=== PATIENT | female | born 1940 | race Caucasian/White ===

== ENCOUNTER 2017-09-10 15:08 | Emergency (ER) | payer MEDICARE, OTHER ==
[~2017-09-10] VITALS: Ht 170.2 cm; Wt 79.4 kg
[~2017-09-10 15:08] MED LIST: CLARITAN PO; MELO1TAB73; NOR10T GT; ONDANSETRON ODT 8 MG TABLET; PROCHLORPERAZINE 10 MG TAB
[2017-09-10 15:19] VITALS: BP 174/72
== END 2017-09-10 17:54 | disposition left against medical advice (07) ==
LOC: ER 15:09
DX: R55 Syncope and collapse (principal); Z53.21 Procedure and treatment not carried out due to patient leaving prior to being seen by health care provider
CPT/HCPCS: 70450; 93005

== ENCOUNTER → 2018-10-18 | Outpatient (CLI) | payer MEDICARE, OTHER ==
[2018-10-18 09:31] LABS: Basophils # (auto) 0.1 uL; Basophils % (auto) 1.2 % (0.0-2.0); Eosinophils # (auto) 0.1 uL; Eosinophils % (auto) 0.6 % (0.0-7.0); Hematocrit 37.3 % (36.0-46.0); Hemoglobin 12.5 g/dL (12.2-16.2); Lymphocytes # (auto) 1.6 uL; Lymphocytes % (auto) 19.2 % (10.0-50.0); Mean Corpuscular Hemoglobin 32.5 pg (28.0-32.0); Mean Corpuscular Hgb Conc. 33.6 g/dL (32.0-36.0); Mean Corpuscular Volume 96.6 fL (80.0-100.0); Monocytes # (auto) 0.5 uL; Monocytes % (auto) 6.6 % (0.0-12.0); Neutrophils # (auto) 5.9 uL; Neutrophils % (auto) 72.4 % (37.0-80.0); Nucleated Red Blood Cells % 0.1 %; Platelet Count (auto) 291 10^3/uL (140-450); Red Blood Cells 3.86 10^6/uL (4.0-5.20); White Blood Cell 8.2 10^3/uL (4.4-10.8)
[2018-10-18 10:32] LABS: Albumin 3.6 g/dL (3.4-5.0); Calcium 8.7 mg/dL (8.5-10.1); Potassium 4.4 mmol/L (3.5-5.1)
[2018-10-18 10:35] LABS: BUN/Creatinine Ratio 17.7; Bilirubin, Total 0.3 mg/dL (0.2-1.0); Total Protein 7.3 g/dL (6.4-8.2)
== END | disposition home or self-care (01) ==
LOC: LAB 09:10
PROVIDERS: ATTEND Internal Medicine
DX: C34.91 Malignant neoplasm of unspecified part of right bronchus or lung (principal)
CPT/HCPCS: 36415; 80053; 83615; 85025

== ENCOUNTER → 2019-10-13 | Outpatient (CLI) | payer MEDICARE, OTHER ==
[2019-10-13 10:58] LABS: Basophils # (auto) 0.1 uL; Basophils % (auto) 1.5 % (0.0-2.0); Eosinophils # (auto) 0.1 uL; Hematocrit 36.6 % (36.0-46.0); Hemoglobin 12.4 g/dL (12.2-16.2); Lymphocytes # (auto) 1.2 uL; Lymphocytes % (auto) 23.1 % (10.0-50.0); Mean Corpuscular Hemoglobin 32.7 pg (28.0-32.0); Mean Corpuscular Hgb Conc. 33.9 g/dL (32.0-36.0); Mean Corpuscular Volume 96.5 fL (80.0-100.0); Monocytes # (auto) 0.2 uL; Monocytes % (auto) 4.4 % (0.0-12.0); Neutrophils # (auto) 3.6 uL; Nucleated Red Blood Cells % 0.1 %; Platelet Count (auto) 250 10^3/uL (140-450); Red Blood Cells 3.79 10^6/uL (4.0-5.20); Red Cell Distribution Width 18.9 % (11.8-14.3); White Blood Cell 5.2 10^3/uL (4.4-10.8)
[2019-10-13 11:01] LABS: Potassium 4.2 mmol/L (3.5-5.1)
[2019-10-13 11:08] LABS: Folate (Folic Acid) > 24.00 ng/mL (5.38-24)
[2019-10-13 11:09] LABS: % Iron Saturation 37.5 % (15-50)
[2019-10-13 11:14] LABS: Albumin 3.9 g/dL (3.4-5.0); BUN/Creatinine Ratio 10.5; Bilirubin, Total 0.5 mg/dL (0.2-1.0); Calcium 9.3 mg/dL (8.5-10.1); Total Protein 7.7 g/dL (6.4-8.2)
== END | disposition home or self-care (01) ==
LOC: LAB 09:48
PROVIDERS: ATTEND Internal Medicine
DX: C34.91 Malignant neoplasm of unspecified part of right bronchus or lung (principal)
CPT/HCPCS: 36415; 80053; 82746; 83540; 83550; 83615; 85025

== ENCOUNTER 2020-04-14 20:14 | Inpatient (IN) | payer MEDICARE, OTHER ==
[~2020-04-14] VITALS: Ht 172.7 cm; Wt 68.8 kg
[2020-04-14 22:31] LABS: Basophils # (auto) 0 10 ^3/uL (0-0.2); Eosinophils # (auto) 0 10 ^3/uL (0-0.8); Lymphocytes # (auto) 0.7 10 ^3/uL (0.4-5.4); Monocytes # (auto) 0.5 10 ^3/uL (0-1.3); Neutrophils # (auto) 0.2 10 ^3/uL (1.6-8.6)
[2020-04-14 22:42] LABS: Alanine Aminotransferase 17 U/L (13-56); Anion Gap 11 (5-15); Aspartate Aminotransferase 41 U/L (15-37); BUN/Creatinine Ratio 15.4; Blood Urea Nitrogen 14 mg/dL (7-18); Calcium 8.3 mg/dL (8.5-10.1); Carbon Dioxide 20 mmol/L (21-32); Chloride 101 mmol/L (98-107); GFR African American 77 mL/min; GFR Non-African American 63 mL/min; Glucose 124 mg/dL (74-106); Potassium 3.1 mmol/L (3.5-5.1); Sodium 132 mmol/L (136-145)
[2020-04-14 22:45] LABS: Lymphocytes % (auto) 50.3 % (10.0-50.0); Monocytes % (auto) 34.8 % (0.0-12.0); Neutrophils % (auto) 13.9 % (37.0-80.0)
[2020-04-14 22:46] LABS: Basophils % (auto) 0.6 % (0.0-2.0); Eosinophils % (auto) 0.4 % (0.0-7.0); INR 1.13 (0.9-1.15); Nucleated Red Blood Cells % 0.9 %; Partial Thromboplastin Time 29.7 sec (23.64-32.05)
[2020-04-14 22:47] LABS: Alkaline Phosphatase 72 U/L (45-117); Bilirubin, Total 0.6 mg/dL (0.2-1.0); Mean Corpuscular Hemoglobin 35.6 pg (28.0-32.0); Mean Corpuscular Hgb Conc. 33.7 g/dL (32.0-36.0); Mean Corpuscular Volume 105.5 fL (80.0-100.0); Total Protein 7.5 g/dL (6.4-8.2)
[2020-04-14 22:48] LABS: Platelet Count (auto) 76 10^3/uL (140-450)
[2020-04-14 22:52] LABS: Hemoglobin 6.7 g/dL (12.2-16.2); White Blood Cell 1.5 10^3/uL (4.4-10.8)
[2020-04-15] VITALS (16 sets, daily range): BP systolic 108–144; BP diastolic 51–82
[2020-04-15] MEDS ORDERED: SODIUM CHLORIDE 0.9% 1,000 ML IV SCH (01:20)
[2020-04-15] MEDS ORDERED: ALBUTEROL SULF 2.5 MG/0.5ML(0.5%) NEB SOLN NEB PRN (01:30)
[2020-04-15] MEDS ORDERED: DOCUSATE SOD 100 MG CAP PO PRN (01:30)
[2020-04-15] MEDS ORDERED: ONDANSETRON HCL 4 MG/2 ML VIAL IV PRN (01:30)
[2020-04-15] MEDS ORDERED: NITROGLYCERIN 0.4 MG SL TAB SL PRN (01:30)
[2020-04-15] MEDS ORDERED: ACETAMINOPHEN 500 MG TAB PO PRN (01:30)
[2020-04-15] MEDS ORDERED: IPRATROPIUM BROM 0.5 MG/2.5ML INH SOL NEB PRN (01:30)
[2020-04-15] MEDS ORDERED: ALBUTEROL SULF HFA 90MCG INH 200DOSE IN SCH (06:00)
[2020-04-15] MEDS ORDERED: DIPH2.5T73 PO (06:21)
[2020-04-15] MEDS ORDERED: ROFL1TAB2 PO (06:37)
[2020-04-15] MEDS ORDERED: ENOXAPARIN SOD 40 MG/0.4 ML SYRINGE SC SCH (10:00)
[2020-04-15] MEDS ORDERED: ASCORBIC ACID 1,000 MG TAB PO SCH (10:00)
[2020-04-15] MEDS ORDERED: CHOLECALCIFEROL (VITD3) 1,000IU=25mCg TAB PO SCH (10:00)
[2020-04-15] MEDS ORDERED: ZINC SULFATE 220mg CAP or TAB PO SCH (10:00)
[2020-04-15] MEDS: DOXYCYCLINE 100 MG TAB/CAP PO SCH ×2 (11:04→21:43)
[2020-04-15] MEDS ORDERED: ACETAMINOPHEN 325 MG TAB PO PRN (14:15)
[2020-04-15] MEDS ORDERED: IOHEXOL 350 MG/ML 100ML IJ ONE (14:22)
[2020-04-15 14:33] LABS: Basophils # (auto) 0 10 ^3/uL (0-0.2); Eosinophils # (auto) 0 10 ^3/uL (0-0.8); Lymphocytes # (auto) 0.4 10 ^3/uL (0.4-5.4); Monocytes # (auto) 0.3 10 ^3/uL (0-1.3); Platelet Count (auto) 51 10^3/uL (140-450)
[2020-04-15 14:36] LABS: Basophils % (auto) 0.2 % (0.0-2.0); Eosinophils % (auto) 0.8 % (0.0-7.0); Hemoglobin 8.8 g/dL (12.2-16.2); Lymphocytes % (auto) 50.7 % (10.0-50.0); Mean Corpuscular Hgb Conc. 35.1 g/dL (32.0-36.0); Neutrophils # (auto) 0.1 10 ^3/uL (1.6-8.6); Neutrophils % (auto) 17.3 % (37.0-80.0); Nucleated Red Blood Cells % 0.9 %; Red Blood Cells 2.58 10^6/uL (4.0-5.20)
[2020-04-15 14:41] LABS: Red Cell Distribution Width 25.9 % (11.8-14.3)
[2020-04-15 14:44] LABS: White Blood Cell 0.8 10^3/uL (4.4-10.8)
[2020-04-15 14:49] LABS: Calcium 8.3 mg/dL (8.5-10.1)
[2020-04-15 14:52] LABS: BUN/Creatinine Ratio 21.2; Bilirubin, Total 0.9 mg/dL (0.2-1.0); Total Protein 7.3 g/dL (6.4-8.2)
[2020-04-15 15:10] LABS: Potassium 2.8 mmol/L (3.5-5.1)
[2020-04-15] MEDS ORDERED: POTASSIUM CHL 20 Meq TABLET PO ONE (15:45)
[2020-04-16 05:13] VITALS: BP 152/72
[2020-04-16 05:59] LABS: Basophils # (auto) 0 10 ^3/uL (0-0.2); Eosinophils # (auto) 0 10 ^3/uL (0-0.8); Red Blood Cells 2.69 10^6/uL (4.0-5.20)
[2020-04-16 06:02] LABS: Basophils % (auto) 0.7 % (0.0-2.0); Eosinophils % (auto) 0.6 % (0.0-7.0); Hematocrit 27.4 % (36.0-46.0); Hemoglobin 9.3 g/dL (12.2-16.2); Lymphocytes # (auto) 0.6 10 ^3/uL (0.4-5.4); Lymphocytes % (auto) 60.7 % (10.0-50.0); Mean Corpuscular Hemoglobin 34.4 pg (28.0-32.0); Mean Corpuscular Hgb Conc. 33.8 g/dL (32.0-36.0); Mean Corpuscular Volume 101.6 fL (80.0-100.0); Monocytes # (auto) 0 10 ^3/uL (0-1.3); Monocytes % (auto) 1.6 % (0.0-12.0); Neutrophils # (auto) 0.3 10 ^3/uL (1.6-8.6); Neutrophils % (auto) 36.4 % (37.0-80.0); Platelet Count (auto) 46 10^3/uL (140-450)
[2020-04-16 06:23] LABS: Potassium 3.5 mmol/L (3.5-5.1)
[2020-04-16 06:37] LABS: Albumin 2.9 g/dL (3.4-5.0); BUN/Creatinine Ratio 23.3; Bilirubin, Total 0.8 mg/dL (0.2-1.0); Calcium 8.3 mg/dL (8.5-10.1); Total Protein 6.8 g/dL (6.4-8.2)
[2020-04-16 06:58] LABS: Nucleated Red Blood Cells % 5.4 %; Red Cell Distribution Width 26.8 % (11.8-14.3)
[2020-04-16 07:25] LABS: White Blood Cell 0.9 10^3/uL (4.4-10.8)
[2020-04-16] MEDS: DOXYCYCLINE 100 MG TAB/CAP PO SCH (08:47)
[2020-04-16 09:00] VITALS: BP 119/57
[2020-04-16 10:09] LABS: % Iron Saturation 38.3 % (15-50)
[2020-04-16 10:28] LABS: Ferritin > 1650.0 ng/mL (10-322)
[2020-04-16 10:29] LABS: Hepatitis B Surface Antibody Negative
[2020-04-16] MEDS ORDERED: levoFLOXacin 750MG 150 ML IV ONE (11:15)
[2020-04-16 12:05] LABS: Hepatitis C Antibody Negative (Negative)
[2020-04-16] MEDS ORDERED: ACETAMINOPHEN 325 MG TAB PO PRN (12:15)
[2020-04-16 13:00] VITALS: BP 123/69
[2020-04-16 17:00] VITALS: BP 95/63
[2020-04-16 22:00] VITALS: BP 123/82
[2020-04-17 05:31] VITALS: BP 145/66
[2020-04-17] MEDS: levoFLOXacin 750MG 150 ML IV SCH (08:14)
[2020-04-17] MEDS: FLORASTOR (S. BOULARDII) 250 MG CAP PO SCH (08:15)
[2020-04-17 09:18] VITALS: BP 107/67
[2020-04-17] MEDS ORDERED: PPN PER PHARMACY 0 ML IV SCH (10:15)
[2020-04-17] MEDS ORDERED: IOHEXOL 300 MG/ML 100ML BOTTLE IJ ONE ×2 (10:55→16:51)
[2020-04-17] MEDS ORDERED: OMNIPAQUE ORAL SOLN 500ml 12mg/ml PO ONE (10:55)
[2020-04-17 10:59] LABS: Basophils # (auto) 0 10 ^3/uL (0-0.2); Lymphocytes # (auto) 0.3 10 ^3/uL (0.4-5.4); Mean Corpuscular Hemoglobin 33.5 pg (28.0-32.0); Monocytes # (auto) 0 10 ^3/uL (0-1.3)
[2020-04-17] MEDS ORDERED: D5W/SOD CHL 0.45% 1,000 ML IV SCH (11:00)
[2020-04-17 11:01] LABS: Basophils % (auto) 0.3 % (0.0-2.0); Eosinophils # (auto) 0 10 ^3/uL (0-0.8); Eosinophils % (auto) 1.4 % (0.0-7.0); Hematocrit 29.4 % (36.0-46.0); Hemoglobin 10.1 g/dL (12.2-16.2); Mean Corpuscular Hgb Conc. 34.3 g/dL (32.0-36.0); Mean Corpuscular Volume 97.8 fL (80.0-100.0); Monocytes % (auto) 1.2 % (0.0-12.0); Neutrophils # (auto) 0.4 10 ^3/uL (1.6-8.6); Neutrophils % (auto) 54.1 % (37.0-80.0); Platelet Count (auto) 46 10^3/uL (140-450); Red Blood Cells 3.01 10^6/uL (4.0-5.20)
[2020-04-17 11:04] LABS: Nucleated Red Blood Cells % 7.9 %; Red Cell Distribution Width 26.8 % (11.8-14.3)
[2020-04-17 11:07] LABS: Albumin 2.3 g/dL (3.4-5.0); Calcium 8.6 mg/dL (8.5-10.1); Magnesium 2.3 mg/dL (1.6-2.6); Potassium 3.2 mmol/L (3.5-5.1); White Blood Cell 0.8 10^3/uL (4.4-10.8)
[2020-04-17 11:16] LABS: BUN/Creatinine Ratio 33.3; Bilirubin, Total 0.6 mg/dL (0.2-1.0); Phosphorus 2.1 mg/dL (2.5-4.90); Pre Albumin 4.6 mg/dL (20.0-40.0); Total Protein 6.9 g/dL (6.4-8.2)
[2020-04-17] MEDS ORDERED: HYDROmorphone HCL 2 MG/ML VL IV ONE (12:45)
[2020-04-17] MEDS ORDERED: POTASSIUM PHOSP 22MEQ(15MMOLE) in NS 100 ML IV ONE (12:45)
[2020-04-17 13:00] VITALS: BP 120/57
[2020-04-17] MEDS: metroNIDAZOLE 500MG/100ML 100 ML IV SCH ×2 (14:00→22:46)
[2020-04-17 14:38] LABS: INR 1.18 (0.9-1.15)
[2020-04-17 16:41] VITALS: BP 133/69
[2020-04-17 19:10] VITALS: BP 133/69
[2020-04-17] MEDS ORDERED: PPN PER PHARMACY IV NR ×8 (20:00)
[2020-04-17 22:00] VITALS: BP 123/66
[2020-04-17] MEDS: PANTOPRAZOLE 40 MG/10 ML VIAL INJ IV SCH (22:47)
[2020-04-18] MEDS ORDERED: DEXTROSE (50%) 50ML SYRG IV SCH
[2020-04-18] MEDS: ACCU-CHEK COMFORT CURVE STRIP VI SCH ×5 (00:46→23:18)
[2020-04-18] MEDS: InsuLIN REG 1unit/0.01ml Soln (100units/ml) SC SCH ×5 (00:46→23:17)
[2020-04-18 04:30] VITALS: BP 111/69
[2020-04-18] MEDS: D5W/SOD CHL 0.45% 1,000 ML IV SCH (05:04)
[2020-04-18 05:57] LABS: Hemoglobin 10.1 g/dL (12.2-16.2)
[2020-04-18 05:59] LABS: Hematocrit 30.5 % (36.0-46.0); Mean Corpuscular Hemoglobin 33.8 pg (28.0-32.0); Mean Corpuscular Hgb Conc. 33.1 g/dL (32.0-36.0); Mean Corpuscular Volume 102.1 fL (80.0-100.0); Platelet Count (auto) 28 10^3/uL (140-450); Red Blood Cells 2.98 10^6/uL (4.0-5.20)
[2020-04-18 06:27] LABS: Potassium 3.7 mmol/L (3.5-5.1)
[2020-04-18 06:39] LABS: Red Cell Distribution Width 26.9 % (11.8-14.3)
[2020-04-18 06:41] LABS: Albumin 2.4 g/dL (3.4-5.0); BUN/Creatinine Ratio 43.7; Bilirubin, Total 0.5 mg/dL (0.2-1.0); Calcium 8.4 mg/dL (8.5-10.1); Magnesium 2.9 mg/dL (1.6-2.6); Phosphorus 2.4 mg/dL (2.5-4.90); Total Protein 6.4 g/dL (6.4-8.2)
[2020-04-18 06:42] LABS: Blast Cells 0; Reactive Lymphocytes 0
[2020-04-18] MEDS: metroNIDAZOLE 500MG/100ML 100 ML IV SCH ×3 (06:51→21:39)
[2020-04-18 08:00] VITALS: BP 108/66
[2020-04-18 09:00] VITALS: BP 108/66
[2020-04-18] MEDS: levoFLOXacin 750MG 150 ML IV SCH (10:00)
[2020-04-18 10:42] LABS: Basophils # (auto) 0 10 ^3/uL (0-0.2); Basophils % (auto) 0.2 % (0.0-2.0); Eosinophils # (auto) 0 10 ^3/uL (0-0.8); Eosinophils % (auto) 0.7 % (0.0-7.0); Lymphocytes # (auto) 0.3 10 ^3/uL (0.4-5.4); Lymphocytes % (auto) 29.5 % (10.0-50.0); Monocytes # (auto) 0 10 ^3/uL (0-1.3); Neutrophils # (auto) 0.7 10 ^3/uL (1.6-8.6); Neutrophils % (auto) 66.6 % (37.0-80.0)
[2020-04-18] MEDS: FLORASTOR (S. BOULARDII) 250 MG CAP PO SCH (11:14)
[2020-04-18 13:00] VITALS: BP 103/65
[2020-04-18] MEDS: PANTOPRAZOLE 40 MG/10 ML VIAL INJ IV SCH ×2 (14:27→21:40)
[2020-04-18] MEDS: methylPREDNISolone SOD SUCC 125 MG/2 ML VL IV SCH ×2 (15:03→21:40)
[2020-04-18 17:00] VITALS: BP 130/77
[2020-04-18] MEDS ORDERED: TPN PER PHARMACY IV NR ×8 (20:00)
[2020-04-18 22:42] VITALS: BP 112/76
[2020-04-19] MEDS: D5W/SOD CHL 0.45% 1,000 ML IV SCH ×2 (04:15→20:00)
[2020-04-19] MEDS: InsuLIN REG 1unit/0.01ml Soln (100units/ml) SC SCH ×3 (05:30→17:56)
[2020-04-19] MEDS: methylPREDNISolone SOD SUCC 125 MG/2 ML VL IV SCH ×3 (05:30→21:34)
[2020-04-19] MEDS: metroNIDAZOLE 500MG/100ML 100 ML IV SCH ×3 (05:30→21:34)
[2020-04-19] MEDS: ACCU-CHEK COMFORT CURVE STRIP VI SCH ×3 (05:31→17:36)
[2020-04-19 05:58] LABS: Basophils # (auto) 0 10 ^3/uL (0-0.2); Eosinophils # (auto) 0 10 ^3/uL (0-0.8); Lymphocytes # (auto) 0.3 10 ^3/uL (0.4-5.4); Monocytes # (auto) 0.1 10 ^3/uL (0-1.3); Neutrophils # (auto) 0.3 10 ^3/uL (1.6-8.6)
[2020-04-19 06:01] LABS: Basophils % (auto) 0.7 % (0.0-2.0); Eosinophils % (auto) 1.2 % (0.0-7.0); Hemoglobin 8.6 g/dL (12.2-16.2); Lymphocytes % (auto) 41.2 % (10.0-50.0); Mean Corpuscular Hemoglobin 34.1 pg (28.0-32.0); Mean Corpuscular Hgb Conc. 34.5 g/dL (32.0-36.0); Mean Corpuscular Volume 98.9 fL (80.0-100.0); Neutrophils % (auto) 38.6 % (37.0-80.0); Nucleated Red Blood Cells % 1.5 %; Red Blood Cells 2.53 10^6/uL (4.0-5.20)
[2020-04-19 06:02] VITALS: BP 113/60
[2020-04-19 06:19] LABS: Potassium 3.5 mmol/L (3.5-5.1)
[2020-04-19 06:31] LABS: BUN/Creatinine Ratio 48.9; Bilirubin, Total 0.4 mg/dL (0.2-1.0); Calcium 8.5 mg/dL (8.5-10.1); Magnesium 2.6 mg/dL (1.6-2.6); Phosphorus 2.5 mg/dL (2.5-4.90); Total Protein 6.6 g/dL (6.4-8.2)
[2020-04-19 06:34] LABS: Monocytes % (auto) 18.3 % (0.0-12.0); Red Cell Distribution Width 26.4 % (11.8-14.3)
[2020-04-19 06:36] LABS: Platelet Count (auto) 20 10^3/uL (140-450); White Blood Cell 0.7 10^3/uL (4.4-10.8)
[2020-04-19 08:50] VITALS: BP 132/75
[2020-04-19] MEDS: FLORASTOR (S. BOULARDII) 250 MG CAP PO SCH (11:19)
[2020-04-19] MEDS: PANTOPRAZOLE 40 MG/10 ML VIAL INJ IV SCH ×2 (11:19→21:34)
[2020-04-19] MEDS: levoFLOXacin 750MG 150 ML IV SCH (11:19)
[2020-04-19] MEDS: FILGRASTIM(TBO) 480 MCG/0.8 ML SYRG SC SCH (11:21)
[2020-04-19 12:30] VITALS: BP 104/62
[2020-04-19 17:00] VITALS: BP 129/68
[2020-04-19] MEDS ORDERED: PPN PER PHARMACY IV NR ×8 (20:00)
[2020-04-19 22:00] VITALS: BP 113/65
[2020-04-20] MEDS: ACCU-CHEK COMFORT CURVE STRIP VI SCH ×2 (00:17→06:00)
[2020-04-20 05:00] VITALS: BP 124/68
[2020-04-20] MEDS: metroNIDAZOLE 500MG/100ML 100 ML IV SCH (06:36)
[2020-04-20] MEDS: methylPREDNISolone SOD SUCC 125 MG/2 ML VL IV SCH ×2 (06:36→14:00)
[2020-04-20] MEDS: InsuLIN REG 1unit/0.01ml Soln (100units/ml) SC SCH ×2 (06:52)
[2020-04-20 07:38] LABS: Hematocrit 27.4 % (36.0-46.0); Hemoglobin 9.4 g/dL (12.2-16.2)
[2020-04-20 07:40] LABS: Mean Corpuscular Hemoglobin 33.5 pg (28.0-32.0); Mean Corpuscular Hgb Conc. 34.2 g/dL (32.0-36.0); Red Blood Cells 2.79 10^6/uL (4.0-5.20)
[2020-04-20 07:45] LABS: Red Cell Distribution Width 26.2 % (11.8-14.3)
[2020-04-20 07:51] LABS: Platelet Count (auto) 11 10^3/uL (140-450)
[2020-04-20 07:52] LABS: Basophils % (manual) 0 (0.0-2.0); Eosinophils % (manual) 0 (0-7); Metamyelocytes % 0; Myelocytes % 0; Promyelocytes % 0
[2020-04-20 07:58] LABS: Albumin 2.1 g/dL (3.4-5.0); Calcium 8.4 mg/dL (8.5-10.1); Potassium 3.9 mmol/L (3.5-5.1)
[2020-04-20 08:00] VITALS: BP 120/63
[2020-04-20 08:00] LABS: BUN/Creatinine Ratio 56.9
[2020-04-20 08:14] LABS: Bilirubin, Total 0.6 mg/dL (0.2-1.0); Total Protein 6.3 g/dL (6.4-8.2)
[2020-04-20] MEDS: FILGRASTIM(TBO) 480 MCG/0.8 ML SYRG SC SCH (10:21)
[2020-04-20] MEDS: FLORASTOR (S. BOULARDII) 250 MG CAP PO SCH (10:21)
[2020-04-20 12:00] VITALS: BP 129/66
[2020-04-20 12:29] LABS: Band Neutrophils % (manual) 2; Blast Cells 2; Lymphocytes % (manual) 80 (10.0-50.0); Monocytes % (manual) 8 (0-12)
[2020-04-20 12:36] LABS: Reactive Lymphocytes 6
== END 2020-04-20 18:00 | disposition hospice, home (50) | DRG 177 ==
LOC: ER 20:14 → EDBD 20:14 → OVERFLOW 20:15 → EAST 04-15 05:19 → CENTRAL 04-15 13:15
PROVIDERS: ADMIT Hospitalist; ATTEND Internal Medicine
PROC: 30230N1 Transfusion of Nonautologous Red Blood Cells into Peripheral Vein, Open Approach (ICD-10-PCS; principal; 2020-04-15)
DX: J15.8 Pneumonia due to other specified bacteria (principal); N17.0 Acute kidney failure with tubular necrosis; N39.0 Urinary tract infection, site not specified; J44.1 Chronic obstructive pulmonary disease with (acute) exacerbation; E44.1 Mild protein-calorie malnutrition; C91.00 Acute lymphoblastic leukemia not having achieved remission; C91.10 Chronic lymphocytic leukemia of B-cell type not having achieved remission; J44.0 Chronic obstructive pulmonary disease with (acute) lower respiratory infection; A09 Infectious gastroenteritis and colitis, unspecified; D46.9 Myelodysplastic syndrome, unspecified; E86.0 Dehydration; Z20.828 Contact with and (suspected) exposure to other viral communicable diseases; T45.1X5A Adverse effect of antineoplastic and immunosuppressive drugs, initial encounter; D69.6 Thrombocytopenia, unspecified; Z88.5 Allergy status to narcotic agent; Y92.89 Other specified places as the place of occurrence of the external cause; Z66 Do not resuscitate; Z85.118 Personal history of other malignant neoplasm of bronchus and lung; Z87.891 Personal history of nicotine dependence; Z90.2 Acquired absence of lung [part of]; Z90.710 Acquired absence of both cervix and uterus; Z85.3 Personal history of malignant neoplasm of breast
CPT/HCPCS: 36415; 36430; 71045; 71275; 74177; 80053; 82040; 82270; 82378; 82607; 82728; 82962; 83010; 83540; 83550; 83615; 83735; 83880; 84100; 84478; 84484; 85007; 85025; 85027; 85045; 85048; 85379; 85610; 85730; 86706; 86803; 86850; 86880; 86900; 86901; 86920; 87045; 87070; 87427; 87493; 87804; 87880; 93005; 93306; 96360; C9113; G0378; J1447; J1815; J1956; J2405; J3490